=== PATIENT | male | born 1985 | race African-American/Black ===

== ENCOUNTER 2019-12-09 17:55 | Emergency (ER) | payer OTHER ==
[~2019-12-09] VITALS: Ht 162.6 cm; Wt 70.0 kg
[2019-12-09 18:09] VITALS: BP 133/62
[2019-12-09] MEDS ORDERED: ORPH100T PO (18:39)
[2019-12-09] MEDS ORDERED: DICL50TA4 PO (18:39)
[2019-12-09] MEDS ORDERED: TRAM50TA PO (18:39)
--- NOTE | 2019-12-09 18:39 | PHYS DOC ---
Past Medical History Past Medical History: Other Additional Past Medical Histor: thalacemia, "pulmonary disease", benign tachycardia Past Surgical History: No Surgical History Smoking Status: Never Smoker Alcohol Use: None General Adult EDM: Chief Complaint: HEADACHE HPI: HPI: Patient is a 34 year old male who presents with complaint of upper back and neck pain along with headache in the back of his head. Patient states pain is been going on for the last couple of weeks. He denies any fever. He denies any nausea or vomiting. Patient states that pain is worsened when he moves his neck.[] Review of Systems: Review of Systems: Constitutional: Denies fever or chills. [] Eyes: Denies change in visual acuity. [] HENT: Denies nasal congestion or sore throat. [] Respiratory: Denies cough or shortness of breath. [] Cardiovascular: Denies chest pain or edema. [] Musculoskeletal: Complains of neck and upper back pain. [] Integument: Denies rash. [] Neurologic: Complains of headache without focal weakness or sensory changes. [] Heart Score: Risk Factors: Risk Factors: DM, Current or recent (<one month) smoker, HTN, HLP, family history of CAD, obesity. Risk Scores: Score 0 - 3: 2.5% MACE over next 6 weeks - Discharge Home Score 4 - 6: 20.3% MACE over next 6 weeks - Admit for Clinical Observation Score 7 - 10: 72.7% MACE over next 6 weeks - Early Invasive Strategies Allergies: Allergies: Allergies Coded Allergies Type Severity Reaction Last Updated Verified No Known Drug Allergies 12/09/19 No Physical Exam: PE: Constitutional: Well developed, well nourished, no acute distress, non-toxic appearance. [] HENT: Normocephalic, atraumatic, bilateral external ears normal, oropharynx moist, no oral exudates, nose normal. [] Eyes: PERRLA, EOMI, conjunctiva normal, no discharge. [] Neck: Normal range of motion, with suboccipital tenderness, left greater than right, supple. [] Cardiovascular: Regular rate and rhythm[] Lungs & Thorax: Bilateral breath sounds clear to auscultation [] Back: There is tenderness to palpation with palpable spasm noted in the right side and levator scapula and trapezius musculature. [] Neurologic: Alert and oriented X 3, no focal deficits noted. [] Current Patient Data: Vital Signs: Vital Signs Date Time Temp Pulse Resp B/P (MAP) Pulse Ox O2 Delivery O2 Flow Rate FiO2 12/09/19 18:09 98.9 96 18 133/62 (85) 94 Room Air 98.9 EKG: EKG: [] Radiology/Procedures: Radiology/Procedures: [] Course & Med Decision Making: Course & Med Decision Making Pertinent Labs and Imaging studies reviewed. (See chart for details) [] Dragon Disclaimer: Dragon Disclaimer: This electronic medical record was generated, in whole or in part, using a voice recognition dictation system. Departure Departure Impression: Primary Impression: Tension headache Additional Impressions: Upper back pain Neck pain Disposition: HOME, SELF-CARE Condition: STABLE Referrals: ERIN ESCOBAR MD (PCP) Patient Instructions: Back Pain, Adult, Musculoskeletal Pain, Tension Headache Scripts Tramadol Hcl (TRAMADOL HCL) 50 Mg Tablet 50 MG PO Q6HRS PRN for PAIN, #12 TAB Prov: YU LEI Jr. DO 12/09/19 Orphenadrine Citrate (ORPHENADRINE CITRATE) 100 Mg Tablet.er 1 TAB PO BID PRN for MUSCLE SPASMS, #14 TAB Prov: YU LEI Jr. DO 12/09/19 Diclofenac Sodium (DICLOFENAC SODIUM) 50 Mg Tablet.dr 1 TAB PO BID PRN for PAIN, #20 TAB Prov: YU LEI Jr. DO 12/09/19 YU LIE Jr. DO Dec 09, 2019 18:39
== END 2019-12-09 18:52 | disposition home or self-care (01) ==
LOC: ER 17:55
DX: G44.209 Tension-type headache, unspecified, not intractable (principal); M54.6 Pain in thoracic spine; M54.2 Cervicalgia; J98.4 Other disorders of lung
CPT/HCPCS: 99283

== ENCOUNTER 2019-12-29 19:24 | Emergency (ER) | payer OTHER ==
[~2019-12-29] VITALS: Ht 152.4 cm; Wt 67.7 kg
[~2019-12-29 19:24] MED LIST: DICL50TA4 PO; ORPH100T PO; TRAM50TA PO
[2019-12-29 20:44] LABS: BASO # 0.1 x10^3/uL (0.0-0.2); BASO % 1 % (0-3); EOS # 0.1 x10^3/uL (0.0-0.7); EOS % 1 % (0-3); HEMATOCRIT 41.2 % (39.0-53.0); HEMOGLOBIN 12.9 g/dL (13.0-17.5); LYMPH # 2.3 x10^3/uL (1.0-4.8); LYMPH % 29 % (24-48); MEAN CORPUSCULAR HEMOGLOBIN 21 pg (25-35); MEAN CORPUSCULAR HGB CONC 31 g/dL (31-37); MEAN CORPUSCULAR VOLUME 67 fL (79-100); MONO # 0.7 x10^3/uL (0.0-1.1); MONO % 9 % (0-9); NEUT # 4.9 x10^3/uL (1.8-7.7); NEUT % 61 % (31-73); PLATELET COUNT 309 x10^3/uL (140-400); RED BLOOD COUNT 6.19 x10^6/uL (4.30-5.70); RED CELL DISTRIBUTION WIDTH 14.7 % (11.5-14.5); WHITE BLOOD COUNT 8.1 x10^3/uL (4.0-11.0)
[2019-12-29] MEDS ORDERED: IV NORMAL SALINE 1000ML BAG 1,000 ML IV ONE (20:45)
[2019-12-29 20:52] LABS: CALCIUM 8.4 mg/dL (8.5-10.1); CREATININE 1.1 mg/dL (0.7-1.3); GFR 92.7; POTASSIUM 3.5 mmol/L (3.5-5.1)
[2019-12-29 20:53] LABS: PROTHROMBIN TIME PATIENT 13.5 SEC (11.7-14.0)
[2019-12-29 20:59] LABS: ALBUMIN 3.2 g/dL (3.4-5.0); ALBUMIN/GLOBULIN RATIO 0.9 (1.0-1.7); MAGNESIUM 1.9 mg/dL (1.8-2.4); TOTAL BILIRUBIN 0.8 mg/dL (0.2-1.0); TOTAL PROTEIN 6.9 g/dL (6.4-8.2)
[2019-12-29 21:08] LABS: CREATINE KINASE 66 U/L (39-308)
[2019-12-29 21:10] LABS: HYPOCHROMIA MOD; MICROCYTOSIS MARKED; PLT ESTIMATE ADEQUATE (ADEQUATE); POLYCHROMASIA SLIGHT
--- NOTE | 2019-12-29 21:27 | RAD ---
CT HEAD INDICATION: Weakness COMPARISON: None Available. Exposure: One or more of the following individualized dose reduction techniques were utilized for this examination: 1. Automated exposure control 2. Adjustment of the mA and/or kV according to patient size 3. Use of iterative reconstruction technique TECHNIQUE: 5 mm contiguous axial images were obtained from the skull base to the vertex in both bone and soft tissue algorithm. FINDINGS: No abnormal attenuation within the brain parenchyma. No evidence of acute intracranial hemorrhage. No extra-axial fluid collections. No mass effect or midline shift. Ventricular size is appropriate. Basal cisterns are patent. No fractures identified.Saha-white differentiation is preserved.Globes and orbits are within normal limits. Paranasal sinuses and mastoid air cells are clear. IMPRESSION: No acute intracranial findings. Electronically signed by: Kai Resendez MD (12/29/2019 9:23 PM) [id number]
[2019-12-29 21:31] LABS: BILIRUBIN,URINE SMALL (NEG); CLARITY,URINE CLEAR; NITRITE,URINE NEGATIVE (NEG); PROTEIN,URINE NEGATIVE (NEG-TRACE)
--- NOTE | 2019-12-29 21:32 | RAD ---
EXAM: CHEST 1 VIEW History: Weakness COMPARISON: None available. TECHNIQUE: Single portable radiograph of the chest FINDINGS: The cardiac silhouette is unremarkable. Linear atelectasis or opacity or scarring left upper lobe of the lung. The costophrenic sulci are clear and well demarcated. IMPRESSION: Linear opacity or atelectasis or scarring changes left apical lung. Recommend follow-up examination to document stability or resolution. Electronically signed by: Kai Resendez MD (12/29/2019 9:29 PM) [id number]
[2019-12-29 21:35] LABS: COLOR,URINE DK YELLOW
[2019-12-29 21:36] LABS: BARBITURATES NEG (NEG); BENZODIAZEPINES NEG (NEG); CANNABINOIDS NEG (NEG); COCAINE NEG (NEG); METHADONE NEG (NEG); OPIATES NEG (NEG); PHENCYCLIDINE NEG (NEG)
[2019-12-29 21:37] LABS: AMPHETAMINE/METHAMPHETAMINE NEG (NEG)
[2019-12-29 21:38] LABS: BACTERIA,URINE 0 /HPF (0-FEW); RBC,URINE 0 /HPF (0-2); SQUAMOUS EPITHELIAL CELL,UR OCC /LPF; WBC,URINE OCC /HPF (0-4)
--- NOTE | 2019-12-29 22:52 | PHYS DOC ---
Past Medical History Past Medical History: Other Additional Past Medical Histor: thalacemia, "pulmonary disease", benign tachycardia Past Surgical History: No Surgical History Smoking Status: Never Smoker Alcohol Use: None General Adult EDM: Chief Complaint: WEAKNESS/GENERALIZED HPI: HPI: Patient is a 34 year old [f__sex] who presents with [] Review of Systems: Review of Systems: Constitutional: Denies fever or chills. [] Eyes: Denies change in visual acuity. [] HENT: Denies nasal congestion or sore throat. [] Respiratory: Denies cough or shortness of breath. [] Cardiovascular: Denies chest pain or edema. [] GI: Denies abdominal pain, nausea, vomiting, bloody stools or diarrhea. [] : Denies dysuria. [] Musculoskeletal: Denies back pain or joint pain. [] Integument: Denies rash. [] Neurologic: Denies headache, focal weakness or sensory changes. [] Endocrine: Denies polyuria or polydipsia. [] Lymphatic: Denies swollen glands. [] Psychiatric: Denies depression or anxiety. [] Heart Score: Risk Factors: Risk Factors: DM, Current or recent (<one month) smoker, HTN, HLP, family history of CAD, obesity. Risk Scores: Score 0 - 3: 2.5% MACE over next 6 weeks - Discharge Home Score 4 - 6: 20.3% MACE over next 6 weeks - Admit for Clinical Observation Score 7 - 10: 72.7% MACE over next 6 weeks - Early Invasive Strategies Current Medications: Current Medications Medications (Trade) Dose Ordered Sig/Brandon Start Time Stop Time Status Last Admin Dose Admin Sodium Chloride 1,000 ml @ 1,000 mls/hr 1X ONCE 12/29/19 20:45 12/29/19 21:44 DC 12/29/19 21:30 1,000 MLS/HR Allergies: Allergies: Allergies Coded Allergies Type Severity Reaction Last Updated Verified No Known Drug Allergies 12/09/19 No Physical Exam: PE: Constitutional: Well developed, well nourished, no acute distress, non-toxic appearance. [] HENT: Normocephalic, atraumatic, bilateral external ears normal, oropharynx moist, no oral exudates, nose normal. [] Eyes: PERRLA, EOMI, conjunctiva normal, no discharge. [] Neck: Normal range of motion, no tenderness, supple, no stridor. [] Cardiovascular:Heart rate regular rhythm, no murmur [] Lungs & Thorax: Bilateral breath sounds clear to auscultation [] Abdomen: Bowel sounds normal, soft, no tenderness, no masses, no pulsatile masses. [] Skin: Warm, dry, no erythema, no rash. [] Back: No tenderness, no CVA tenderness. [] Extremities: No tenderness, no cyanosis, no clubbing, ROM intact, no edema. [] Neurologic: Alert and oriented X 3, normal motor function, normal sensory fu nction, no focal deficits noted. [] Psychologic: Affect normal, judgement normal, mood normal. [] Current Patient Data: Labs: Laboratory Tests Test 12/29/19 19:58 12/29/19 21:20 12/29/19 21:37 White Blood Count 8.1 x10^3/uL (4.0-11.0) Red Blood Count 6.19 x10^6/uL (4.30-5.70) H Hemoglobin 12.9 g/dL (13.0-17.5) L Hematocrit 41.2 % (39.0-53.0) Mean Corpuscular Volume 67 fL (79-100) L Mean Corpuscular Hemoglobin 21 pg (25-35) L Mean Corpuscular Hemoglobin Concent 31 g/dL (31-37) Red Cell Distribution Width 14.7 % (11.5-14.5) H Platelet Count 309 x10^3/uL (140-400) Neutrophils (%) (Auto) 61 % (31-73) Lymphocytes (%) (Auto) 29 % (24-48) Monocytes (%) (Auto) 9 % (0-9) Eosinophils (%) (Auto) 1 % (0-3) Basophils (%) (Auto) 1 % (0-3) Neutrophils # (Auto) 4.9 x10^3/uL (1.8-7.7) Lymphocytes # (Auto) 2.3 x10^3/uL (1.0-4.8) Monocytes # (Auto) 0.7 x10^3/uL (0.0-1.1) Eosinophils # (Auto) 0.1 x10^3/uL (0.0-0.7) Basophils # (Auto) 0.1 x10^3/uL (0.0-0.2) Platelet Estimate Adequate (ADEQUATE) Polychromasia Slight Hypochromasia Mod Microcytosis Marked Prothrombin Time 13.5 SEC (11.7-14.0) Prothrombin Time INR 1.1 (0.8-1.1) Activated Partial Thromboplast Time 34 SEC (24-38) Sodium Level 141 mmol/L (136-145) Potassium Level 3.5 mmol/L (3.5-5.1) Chloride Level 105 mmol/L (98-107) Carbon Dioxide Level 28 mmol/L (21-32) Anion Gap 8 (6-14) Blood Urea Nitrogen 14 mg/dL (8-26) Creatinine 1.1 mg/dL (0.7-1.3) Estimated GFR (Cockcroft-Gault) 92.7 BUN/Creatinine Ratio 13 (6-20) Glucose Level 94 mg/dL (70-99) Calcium Level 8.4 mg/dL (8.5-10.1) L Magnesium Level 1.9 mg/dL (1.8-2.4) Total Bilirubin 0.8 mg/dL (0.2-1.0) Aspartate Amino Transferase (AST) 11 U/L (15-37) L Alanine Aminotransferase (ALT) 25 U/L (16-63) Alkaline Phosphatase 73 U/L (46-116) Creatine Kinase 66 U/L (39-308) Creatine Kinase MB (Mass) < 0.5 ng/mL (0.0-3.6) Creatine Kinase MB Relative Index % (0-4) Troponin I Quantitative < 0.017 ng/mL (0.000-0.055) Total Protein 6.9 g/dL (6.4-8.2) Albumin 3.2 g/dL (3.4-5.0) L Albumin/Globulin Ratio 0.9 (1.0-1.7) L Ethyl Alcohol Level < 10 mg/dL (0-10) Urine Collection Type Unknown Urine Color Dk yellow Urine Clarity Clear Urine pH 6.0 (<5.0-8.0) Urine Specific [place] >=1.030 (1.000-1.030) Urine Protein Negative mg/dL (NEG-TRACE) Urine Glucose (UA) Negative mg/dL (NEG) Urine Ketones (Stick) Trace mg/dL (NEG) Urine Blood Negative (NEG) Urine Nitrite Negative (NEG) Urine Bilirubin Small (NEG) Urine Urobilinogen Dipstick 1.0 mg/dL (0.2 mg/dL) Urine Leukocyte Esterase Negative (NEG) Urine RBC 0 /HPF (0-2) Urine WBC Occ /HPF (0-4) Urine Squamous Epithelial Cells Occ /LPF Urine Bacteria 0 /HPF (0-FEW) Urine Mucus Marked /LPF Urine Opiates Screen Neg (NEG) Urine Methadone Screen Neg (NEG) Urine Barbiturates Neg (NEG) Urine Phencyclidine Screen Neg (NEG) Urine Amphetamine/Methamphetamine Neg (NEG) Urine Benzodiazepines Screen Neg (NEG) Urine Cocaine Screen Neg (NEG) Urine Cannabinoids Screen Neg (NEG) Urine Ethyl Alcohol Neg (NEG) Lactic Acid Level 0.6 mmol/L (0.4-2.0) Laboratory Tests 12/29/19 19:58 Laboratory Tests 12/29/19 19:58 Vital Signs: Vital Signs Date Time Temp Pulse Resp B/P (MAP) Pulse Ox O2 Delivery O2 Flow Rate FiO2 12/29/19 19:48 98.4 87 14 133/62 (85) 96 Room Air 98.4 EKG: EKG: @2057 NSR at 79bpm, QRS 80ms, QT/QTc 346/398ms Radiology/Procedures: Radiology/Procedures: [] Course & Med Decision Making: Course & Med Decision Making Pertinent Labs and Imaging studies reviewed. (See chart for details) [] Dragon Disclaimer: Dragon Disclaimer: This electronic medical record was generated, in whole or in part, using a voice recognition dictation system. Departure Departure Impression: Primary Impression: Weakness Disposition: 01 HOME, SELF-CARE Condition: STABLE Referrals: FELICITY CHERRY MD (PCP) Patient Instructions: Weakness, [id number] Additional Instructions: Please follow up with your neurologist tomorrow as previously scheduled. ANTOINE NG DO December 29, 2019 22:52
[2019-12-29 23:00] VITALS: BP 124/72
--- NOTE | 2019-12-30 06:52 | EKG ---
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
== END 2019-12-29 23:06 | disposition home or self-care (01) ==
LOC: ER 19:24
DX: R53.1 Weakness (principal)
CPT/HCPCS: 36415; 70450; 71045; 80053; 80307; 81001; 82553; 83605; 83735; 84484; 85025; 85610; 85730; 93005; 99285; G0480; J7030

== ENCOUNTER 2020-01-14 18:46 | Emergency (ER) | payer OTHER ==
[~2020-01-14] VITALS: Ht 152.4 cm; Wt 67.3 kg
[2020-01-14] MEDS ORDERED: IV NORMAL SALINE 1000ML BAG 1,000 ML IV SCH (19:06)
[2020-01-14 19:21] LABS: BASO # 0.1 x10^3/uL (0.0-0.2); BASO % 1 % (0-3); EOS # 0.3 x10^3/uL (0.0-0.7); EOS % 4 % (0-3); HEMATOCRIT 38.9 % (39.0-53.0); HEMOGLOBIN 12.6 g/dL (13.0-17.5); LYMPH # 1.3 x10^3/uL (1.0-4.8); LYMPH % 20 % (24-48); MEAN CORPUSCULAR HEMOGLOBIN 22 pg (25-35); MEAN CORPUSCULAR HGB CONC 32 g/dL (31-37); MEAN CORPUSCULAR VOLUME 67 fL (79-100); MONO # 0.6 x10^3/uL (0.0-1.1); MONO % 9 % (0-9); NEUT # 4.5 x10^3/uL (1.8-7.7); NEUT % 66 % (31-73); PLATELET COUNT 271 x10^3/uL (140-400); RED BLOOD COUNT 5.84 x10^6/uL (4.30-5.70); RED CELL DISTRIBUTION WIDTH 14.5 % (11.5-14.5); WHITE BLOOD COUNT 6.7 x10^3/uL (4.0-11.0)
[2020-01-14 19:30] LABS: CALCIUM 8.7 mg/dL (8.5-10.1); CREATININE 1.1 mg/dL (0.7-1.3); GFR 92.7; POTASSIUM 3.9 mmol/L (3.5-5.1)
--- NOTE | 2020-01-14 19:35 | PHYS DOC ---
Past Medical History Past Medical History: Other Additional Past Medical Histor: thalacemia, "pulmonary disease", benign tachycardia Past Surgical History: No Surgical History Smoking Status: Never Smoker Alcohol Use: None Drug Use: None General Adult EDM: Chief Complaint: WEAKNESS/GENERALIZED HPI: HPI: Patient is a 34 year old male who presents with complaint of generalized weakness for the last couple of days. Patient states that he is also had some shortness of breath but states that that is due to his sarcoidosis. He denies any chest pain or cough. He denies any fever. Patient states he is not sure why he feels weak. Patient also complains of lower back pain but denies any urinary discomfort. [] Review of Systems: Review of Systems: Constitutional: Denies fever or chills. [] Respiratory: Denies cough or shortness of breath. [] Cardiovascular: Denies chest pain or edema. [] GI: Denies abdominal pain, nausea, vomiting, bloody stools or diarrhea. [] : Denies dysuria. [] Musculoskeletal: Complains of lower back pain. [] Integument: Denies rash. [] Neurologic: Denies headache, focal weakness or sensory changes. [] Heart Score: Risk Factors: Risk Factors: DM, Current or recent (<one month) smoker, HTN, HLP, family history of CAD, obesity. Risk Scores: Score 0 - 3: 2.5% MACE over next 6 weeks - Discharge Home Score 4 - 6: 20.3% MACE over next 6 weeks - Admit for Clinical Observation Score 7 - 10: 72.7% MACE over next 6 weeks - Early Invasive Strategies Current Medications: Current Medications Medications (Trade) Dose Ordered Sig/Brandon Start Time Stop Time Status Last Admin Dose Admin Sodium Chloride 1,000 ml @ 1,000 mls/hr Q1H 01/14/20 19:06 01/14/20 20:05 01/14/20 19:15 1,000 MLS/HR Allergies: Allergies: Allergies Coded Allergies Type Severity Reaction Last Updated Verified No Known Drug Allergies 12/09/19 No Physical Exam: PE: Constitutional: Well developed, well nourished, no acute distress, non-toxic appearance. [] HENT: Normocephalic, atraumatic, bilateral external ears normal, oropharynx moist, no oral exudates, nose normal. [] Eyes: PERRLA, EOMI, conjunctiva normal, no discharge. [] Neck: Normal range of motion, no tenderness, supple, no stridor. [] Cardiovascular: Regular rate and rhythm [] Lungs & Thorax: Bilateral breath sounds clear to auscultation [] Abdomen: Bowel sounds normal, soft, no tenderness. [] Skin: Warm, dry, no erythema, no rash. [] Extremities: No tenderness, no cyanosis, no clubbing, ROM intact, no edema. [] Neurologic: Alert and oriented X 3, no focal deficits noted. [] Current Patient Data: Labs: Laboratory Tests Test 01/14/20 19:13 White Blood Count 6.7 x10^3/uL (4.0-11.0) Red Blood Count 5.84 x10^6/uL (4.30-5.70) H Hemoglobin 12.6 g/dL (13.0-17.5) L Hematocrit 38.9 % (39.0-53.0) L Mean Corpuscular Volume 67 fL (79-100) L Mean Corpuscular Hemoglobin 22 pg (25-35) L Mean Corpuscular Hemoglobin Concent 32 g/dL (31-37) Red Cell Distribution Width 14.5 % (11.5-14.5) Platelet Count 271 x10^3/uL (140-400) Neutrophils (%) (Auto) 66 % (31-73) Lymphocytes (%) (Auto) 20 % (24-48) L Monocytes (%) (Auto) 9 % (0-9) Eosinophils (%) (Auto) 4 % (0-3) H Basophils (%) (Auto) 1 % (0-3) Neutrophils # (Auto) 4.5 x10^3/uL (1.8-7.7) Lymphocytes # (Auto) 1.3 x10^3/uL (1.0-4.8) Monocytes # (Auto) 0.6 x10^3/uL (0.0-1.1) Eosinophils # (Auto) 0.3 x10^3/uL (0.0-0.7) Basophils # (Auto) 0.1 x10^3/uL (0.0-0.2) Platelet Estimate Pending Laboratory Tests 01/14/20 19:13 Vital Signs: Vital Signs Date Time Temp Pulse Resp B/P (MAP) Pulse Ox O2 Delivery O2 Flow Rate FiO2 01/14/20 19:00 98.2 92 20 140/72 (94) 99 Room Air 98.2 EKG: EKG: [] Radiology/Procedures: Radiology/Procedures: [] Course & Med Decision Making: Course & Med Decision Making Pertinent Labs and Imaging studies reviewed. (See chart for details) [] Dragon Disclaimer: Dragon Disclaimer: This electronic medical record was generated, in whole or in part, using a voice recognition dictation system. Departure Departure Impression: Primary Impression: Generalized weakness Disposition: 01 HOME, SELF-CARE Condition: STABLE Referrals: FELICITY CHERRY MD (PCP) Patient Instructions: Weakness YU LEI Jr. DO Jan 14, 2020 19:35
[2020-01-14 19:36] LABS: ALBUMIN 3.4 g/dL (3.4-5.0); ALBUMIN/GLOBULIN RATIO 0.9 (1.0-1.7); MAGNESIUM 1.8 mg/dL (1.8-2.4); TOTAL BILIRUBIN 0.7 mg/dL (0.2-1.0)
[2020-01-14 19:42] LABS: BILIRUBIN,URINE NEGATIVE (NEG); CLARITY,URINE CLEAR; COLOR,URINE YELLOW; NITRITE,URINE NEGATIVE (NEG); PROTEIN,URINE NEGATIVE (NEG-TRACE)
[2020-01-14 19:43] LABS: PLT ESTIMATE ADEQUATE (ADEQUATE)
[2020-01-14 19:44] LABS: HYPOCHROMIA MOD; MICROCYTOSIS MOD
[2020-01-14 19:45] LABS: OVALOCYTES OCC
[2020-01-14 19:55] LABS: BACTERIA,URINE 0 /HPF (0-FEW); SQUAMOUS EPITHELIAL CELL,UR OCC /LPF
[2020-01-14 19:56] LABS: WBC,URINE RARE /HPF (0-4)
[2020-01-14 20:30] VITALS: BP 114/65
--- NOTE | 2020-01-15 06:57 | EKG ---
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
== END 2020-01-14 20:39 | disposition home or self-care (01) ==
LOC: ER 18:46
DX: R53.1 Weakness (principal); R06.02 Shortness of breath; M54.5 Low back pain
CPT/HCPCS: 36415; 80053; 81001; 83735; 85025; 93005; 99284; J7030

== ENCOUNTER 2020-03-27 17:51 | Emergency (ER) | payer OTHER ==
[2020-03-28] MEDS ORDERED: BUTA1TAB23 PO (14:05)
== END 2020-03-27 19:33 | disposition left against medical advice (07) ==
LOC: ER 17:51
DX: R51 Headache (principal); M54.2 Cervicalgia; Z53.21 Procedure and treatment not carried out due to patient leaving prior to being seen by health care provider

== ENCOUNTER 2020-03-28 11:33 | Emergency (ER) | payer OTHER ==
[~2020-03-28] VITALS: Ht 152.4 cm; Wt 70.5 kg
[2020-03-28] MEDS ORDERED: diphenhydrAMINE 50 MG/ML VIAL IVP ONE (12:15)
[2020-03-28] MEDS ORDERED: methylPREDNISolone SOD SUCC PF 125 MG/2 ML VIAL. IV ONE (12:15)
[2020-03-28] MEDS ORDERED: IV NORMAL SALINE 1000ML BAG 1,000 ML IV ONE (12:15)
[2020-03-28] MEDS ORDERED: KETOROLAC 15 MG/ML VIAL. IVP ONE (12:15)
[2020-03-28 12:25] LABS: BASO # 0.1 x10^3/uL (0.0-0.2); BASO % 1 % (0-3); EOS # 0.1 x10^3/uL (0.0-0.7); EOS % 2 % (0-3); HEMATOCRIT 38.6 % (39.0-53.0); HEMOGLOBIN 12.3 g/dL (13.0-17.5); LYMPH # 1.6 x10^3/uL (1.0-4.8); LYMPH % 26 % (24-48); MEAN CORPUSCULAR HEMOGLOBIN 21 pg (25-35); MEAN CORPUSCULAR HGB CONC 32 g/dL (31-37); MEAN CORPUSCULAR VOLUME 66 fL (79-100); MONO # 0.5 x10^3/uL (0.0-1.1); MONO % 8 % (0-9); NEUT # 3.9 x10^3/uL (1.8-7.7); NEUT % 63 % (31-73); PLATELET COUNT 278 x10^3/uL (140-400); RED BLOOD COUNT 5.88 x10^6/uL (4.30-5.70); RED CELL DISTRIBUTION WIDTH 14.4 % (11.5-14.5); WHITE BLOOD COUNT 6.1 x10^3/uL (4.0-11.0)
--- NOTE | 2020-03-28 12:30 | PHYS DOC ---
Past Medical History Past Medical History: Other Additional Past Medical Histor: thalacemia, "pulmonary disease", benign tachycardia Past Surgical History: Other Additional Past Surgical Histo: ORAL SURGERY Smoking Status: Never Smoker Alcohol Use: None Drug Use: None General Adult EDM: Chief Complaint: HEADACHE HPI: HPI: Patient is a 35 year old AA male who presents to the emergency department with complaints of a headache in the right side of his head that radiates around to the back of his skull. Patient states that the headache started 3 weeks ago and had been intermittent until this past week when they became constant. He denies any vision changes, photosensitivity, dizziness, ear ringing, nausea, or vomiting with the headaches. He reports that he has had some shortness of breath but states that that is due to his chronic sarcoidosis. He denies any fever, cough, nasal congestion, chest pain, palpitations, abdominal pain, nausea, vomiting, diarrhea, or rash. Patient denies any known exposure to COVID-19 or exposure to any one under investigation for the infection, however, he reports that his works at [employer]. He reports that his joints have been achy for the last 3 weeks and his right foot has been swelling intermittently. He currently rates his headache 8 out of 10 on the pain scale, he denies any alleviating or exacerbating factors, he reports that the pain radiates to the back of his head. Review of Systems: Review of Systems: Constitutional: Denies fever or chills. [] Eyes: Denies change in visual acuity. [] HENT: Denies nasal congestion or sore throat. [] Respiratory: Denies cough; see HPI Cardiovascular: Denies chest pain or palpitations; see HPI GI: Denies abdominal pain, nausea, vomiting, or diarrhea. [] Musculoskeletal: Denies back pain; see HPI Integument: Denies rash. [] Neurologic: Denies focal weakness or sensory changes; see HPI Lymphatic: Denies swollen glands. [] Psychiatric: Denies depression or anxiety. [] Heart Score: Risk Factors: Risk Factors: DM, Current or recent (<one month) smoker, HTN, HLP, family history of CAD, obesity. Risk Scores: Score 0 - 3: 2.5% MACE over next 6 weeks - Discharge Home Score 4 - 6: 20.3% MACE over next 6 weeks - Admit for Clinical Observation Score 7 - 10: 72.7% MACE over next 6 weeks - Early Invasive Strategies Current Medications: Current Medications Medications (Trade) Dose Ordered Sig/Brandon Start Time Stop Time Status Last Admin Dose Admin Diphenhydramine HCl (Benadryl) 25 mg 1X ONCE 03/28/20 12:15 03/28/20 12:16 DC Ketorolac Tromethamine (Toradol 15mg Vial) 15 mg 1X ONCE 03/28/20 12:15 03/28/20 12:16 DC Methylprednisolone Sodium Succinate (SOLU-Medrol 125MG VIAL) 125 mg 1X ONCE 03/28/20 12:15 03/28/20 12:16 DC Sodium Chloride 1,000 ml @ 1,000 mls/hr 1X ONCE 03/28/20 12:15 03/28/20 13:14 Allergies: Allergies: Allergies Coded Allergies Type Severity Reaction Last Updated Verified No Known Drug Allergies 12/09/19 No Physical Exam: PE: Constitutional: Well developed, well nourished, no acute distress, non-toxic appearance. [] HENT: Normocephalic, atraumatic, bilateral external ears normal, oropharynx moist, no oral exudates, nose normal. [] Eyes: PERRLA, EOMI, conjunctiva normal, no discharge. [] Neck: Normal range of motion, no stridor. [] Cardiovascular:Heart rate regular rhythm, no murmur [] Lungs & Thorax: Bilateral breath sounds clear to auscultation, Respirations even and unlabored, no retractions, no respiratory distress [] Skin: Warm, dry, no erythema, no rash. [] Back: No tenderness Extremities: No tenderness, no erythema, no cyanosis, no clubbing, ROM intact, no edema. [] Neurologic: Alert and oriented X 3, normal motor function, normal sensory function, no focal deficits noted. [] Psychologic: Affect normal, judgement normal, mood normal. [] Current Patient Data: Vital Signs: Vital Signs Date Time Temp Pulse Resp B/P (MAP) Pulse Ox O2 Delivery O2 Flow Rate FiO2 03/28/20 11:40 98.8 90 18 125/64 (84) 98 Room Air 98.8 EKG: EKG: [] Radiology/Procedures: Radiology/Procedures: PROCEDURE: CHEST AP ONLY Chest AP only at 1344: Reason for examination: Nausea, vomiting and diarrhea. Comparison is made to previous study dated 12/29/2019. The heart size is normal. Mediastinum is unremarkable. Lung beck show chronic changes in the left apex which probably reflect scarring. There are however mild patchy infiltrates bilaterally which may reflect pneumonia. No pleural effusions are seen. No acute bony abnormalities are seen. Impression: Chronic changes in the left apex probably reflecting scarring. Mild hazy infiltrates bilaterally. PROCEDURE: CT HEAD WO CONTRAST Examination: CT HEAD WO CONTRAST History: Reason: headache x3 weeks, no hx of migraines, PUI / Spl. Instructions: / History: Comparison/Correlation: None Findings: Axial images of the head were obtained without contrast. Ventricles are normal size. No intracranial hemorrhage, midline shift, or mass effect. Bony structures are unremarkable Impression: No suspicious process. [] Course & Med Decision Making: Course & Med Decision Making Pertinent Labs and Imaging studies reviewed. (See chart for details) 35-year-old male presented to the emergency department today with multiple complaints. Work-up included CT head, chest x-ray, labs, IV fluids, and medications for headache. CT head was negative for any acute findings. Chest x-ray revealed chronic changes in the left apex probably scarring, and mild hazy infiltrates bilaterally. CBC revealed a normal white blood cell count, mild anemia with a hemoglobin of 12.3, hematocrit of 38.6, red blood cell count was 5.88; d-dimer was 0.43; CMP revealed a glucose of 113, normal liver enzymes, elevated CRP of 4.2 otherwise unremarkable; patient's UA was not concerning. He was given 1 L of normal saline, 125 mg of Solu-Medrol, 50 mg of Toradol, and 25 mg of IV Benadryl. Patient reported feeling better after these medications. Prescription written for butalbital to take as needed headaches. Patient was advised the COVID-19 test results was not available yet would be back between 2 and 7 days, he was encouraged to follow the COVID-19 instructions provided to him to go home and quarantine until he knows his test result. Patient verbalized an understanding of home care, medications, follow-up, and return to ED instructions and was in agreement with the plan of care. [] Dragon Disclaimer: Dragon Disclaimer: This electronic medical record was generated, in whole or in part, using a voice recognition dictation system. Departure Departure Impression: Primary Impression: Person under investigation for COVID-19 Additional Impression: Headache Qualified Codes: R51 - Headache Disposition: 01 HOME, SELF-CARE Condition: STABLE Referrals: FELICITY CHERRY MD (PCP) Patient Instructions: General Headache Without Cause, [id number] Additional Instructions: Fill the prescription and take as directed. Increase clear fluids and rest. Follow-up with the COVID-19 instructions that have been given to you. You need to quarantine until you know the results of your COVID-19 test. You have been tested for or diagnosed with COVID-19. It is an infection caused by a new type of coronavirus. COVID-19 will cause cold-like or mild flu symptoms in most. It can cause more severe symptoms like problems breathing in some. There is no treatment for COVID-19. The body will clear the infection over time. Self-care will help to ease discomfort. Steps to Take: Self-Care Rest as needed. Healthy habits may help you feel better. Steps include: Choose healthy foods including fruits and vegetables. Drink water throughout the day. Get plenty of sleep each night. If you smoke, try to quit. It may ease breathing. Avoid alcohol. Keep Others Healthy The virus can spread to others. Droplets are released every time you sneeze or cough. The droplets can get into the mouth, nose, or eyes of people near you and lead to infection. To lower the chances of spreading COVID-19 to others: Stay at home until your doctor has said it is safe to leave. If you tested positive this will mean staying isolated until both of the following are true: At least 7 days have passed since the start of illness. You are free of fever for at least 72 hours without the use of medicine. During this time: - Avoid public areas, events, or transportation. Do not return to work or school until your doctor has said it is safe to do so. - Call ahead if you need to go to a medical center. Let them know you may have COVID-19. It will help them guide you where to go. They may also ask you to wear a facemask when you come to the office. - If you call for emergency medical services, let them know you may have COVID- 19. While at home: - Try to avoid close contact with others. Stay about 6 feet away. - If possible, spend most of your time in a separate room from others. - Use a face mask if you will be in close contact with others such as sharing a room or vehicle. - Have someone wipe down common surfaces in the home. Use household horticultural services supervisor every day on areas like doorknobs, counters, or sinks. - Cough or sneeze into a tissue. Throw the tissue away right after use. If a tissue is not available, cough or sneeze into your elbow. - Wash your hands often. Wash them after sneezing or coughing. Use soap and water and wash for at least 20 seconds. Alcohol based hand belt cleaner can be used if soap and water is not available. - Do not prepare food for others. Avoid sharing personal items like forks, spoons, or toothbrushes. - Avoid close contact with pets while you are sick. There is no evidence of the virus passing to pets. This is a safety step until more is known about this virus. Isolation can be frustrating. Social interaction can help. Keep in touch with friends and family through phone and tech options. You can still interact with others in your home, just keep a safe distance of about 6 feet. Follow-up: Your doctors office will check in with you to see if there are any changes in your health. You may be asked to keep track of symptoms to share with them. They will also let you know when you are clear to be in public again. Problems to Look Out For: Contact your doctor if your recovery is not going as you expect. Get emergency care if you have problems such as: - Trouble breathing - Nonstop chest pain or pressure - Changes in awareness, confusion, or problems waking - Lips or face have bluish color - Worsening of symptoms If you think you have an emergency, call for emergency medical services right away. [facility] Butalb/Acetaminophen/Caffeine ([id number] 50-325-40) 1 Each Tablet 1-2 EACH PO Q4HRS PRN for PAIN MDD 6 tabs for 3 Days, #18 TAB 0 Refills Prov: MARI MIDDLETON Jerome INSURANCE SALES REPRESENTATIVE 03/28/20 Justicifation of Admission Dx: Justifications for Admission: Justification of Admission Dx: N/A COVID-19 Assessment: COVID-19 Patient Risks: Age 65 or older: No Sign of co-morbidity: No Exp to person + for COVID: No Exp to PUI: No ( works at [employer]) Travel from affected area: No Lower respiratory symptoms: No Fever: No Other: Yes (Body aches and headache that began 3 weeks ago, increased shortness of breath) PPE Use: Full PPE with N95 mask or PAPR: Yes (N 95) MARI MIDDLETON APRN Mar 28, 2020 12:30
--- NOTE | 2020-03-28 12:51 | RAD ---
Examination: CT HEAD WO CONTRAST History: Reason: headache x3 weeks, no hx of migraines, PUI / Spl. Instructions: / History: Comparison/Correlation: None Findings: Axial images of the head were obtained without contrast. Ventricles are normal size. No intracranial hemorrhage, midline shift, or mass effect. Bony structures are unremarkable Impression: No suspicious process. Electronically signed by: Eder Alva MD (03/28/2020 12:48 PM) [id number]
[2020-03-28 12:53] LABS: CALCIUM 8.2 mg/dL (8.5-10.1); CREATININE 1.2 mg/dL (0.7-1.3); GFR 83.4; POTASSIUM 3.5 mmol/L (3.5-5.1)
[2020-03-28 13:03] LABS: BILIRUBIN,URINE NEGATIVE (NEG); CLARITY,URINE CLEAR; COLOR,URINE YELLOW; NITRITE,URINE NEGATIVE (NEG); PROTEIN,URINE NEGATIVE (NEG-TRACE)
[2020-03-28 13:10] LABS: ALBUMIN 3.3 g/dL (3.4-5.0); ALBUMIN/GLOBULIN RATIO 0.8 (1.0-1.7); C-REACTIVE PROTEIN 4.2 mg/L (0-3.3); TOTAL BILIRUBIN 0.9 mg/dL (0.2-1.0); TOTAL PROTEIN 7.2 g/dL (6.4-8.2)
[2020-03-28 13:20] LABS: SQUAMOUS EPITHELIAL CELL,UR FEW /LPF
[2020-03-28 13:21] LABS: BACTERIA,URINE 0 /HPF (0-FEW); RBC,URINE 0 /HPF (0-2)
--- NOTE | 2020-03-28 13:38 | RAD ---
Chest AP only at 1344: Reason for examination: Nausea, vomiting and diarrhea. Comparison is made to previous study dated 12/29/2019. The heart size is normal. Mediastinum is unremarkable. Lung beck show chronic changes in the left apex which probably reflect scarring. There are however mild patchy infiltrates bilaterally which may reflect pneumonia. No pleural effusions are seen. No acute bony abnormalities are seen. Impression: Chronic changes in the left apex probably reflecting scarring. Mild hazy infiltrates bilaterally. Electronically signed by: Roseanna Cespedes MD (03/28/2020 1:35 PM) [facility]
[2020-03-28 13:48] LABS: PLT ESTIMATE ADEQUATE (ADEQUATE)
[2020-03-28 13:49] LABS: HYPOCHROMIA SLIGHT; MICROCYTOSIS MOD
[2020-03-28] MEDS ORDERED: BUTA1TAB23 PO (14:05)
[2020-03-28 14:24] VITALS: BP 119/57
--- NOTE | 2020-03-30 10:29 | NUR ---
IP: Informed pt of negative COVID results. Pt verbalized understanding.
== END 2020-03-28 14:43 | disposition home or self-care (01) ==
LOC: ER 11:33
DX: R51 Headache (principal); Z20.818 Contact with and (suspected) exposure to other bacterial communicable diseases; R60.0 Localized edema; Z98.890 Other specified postprocedural states
CPT/HCPCS: 36415; 70450; 71045; 80053; 81001; 82550; 82728; 83690; 83735; 85025; 85379; 86140; 96361; 96374; 96375; 99285; J1200; J1885; J2930; J7030; U0003

== ENCOUNTER 2020-11-02 20:43 | Emergency (ER) | payer OTHER ==
[~2020-11-02] VITALS: Ht 175.3 cm; Wt 79.5 kg
[~2020-11-02 20:43] MED LIST changes: +BUTA1TAB23 PO
[2020-11-02] MEDS ORDERED: methylPREDNISolone SOD SUCC PF 125 MG/2 ML VIAL. IV ONE (22:15)
[2020-11-02] MEDS ORDERED: MORPHINE SULFATE 2 MG/ML VIAL. IV/SQ PRN (22:15)
[2020-11-02] MEDS ORDERED: IV NORMAL SALINE 1000ML BAG 1,000 ML IV ONE (22:15)
[2020-11-02 22:40] LABS: BASO % 0 % (0-3); EOS % 0 % (0-3); HEMATOCRIT 39.6 % (39.0-53.0); HEMOGLOBIN 12.5 g/dL (13.0-17.5); LYMPH # 0.8 x10^3/uL (1.0-4.8); LYMPH % 9 % (24-48); MEAN CORPUSCULAR HEMOGLOBIN 21 pg (25-35); MEAN CORPUSCULAR HGB CONC 32 g/dL (31-37); MEAN CORPUSCULAR VOLUME 65 fL (79-100); MONO # 0.3 x10^3/uL (0.0-1.1); MONO % 4 % (0-9); NEUT # 7.5 x10^3/uL (1.8-7.7); NEUT % 87 % (31-73); PLATELET COUNT 295 x10^3/uL (140-400); RED BLOOD COUNT 6.06 x10^6/uL (4.30-5.70); RED CELL DISTRIBUTION WIDTH 14.5 % (11.5-14.5); WHITE BLOOD COUNT 8.6 x10^3/uL (4.0-11.0)
--- NOTE | 2020-11-02 22:46 | RAD ---
INDICATION: Reason: weakness, tingling in shoulders / Spl. Instructions: / History: COMPARISON: March 2020 FINDINGS: Single view of chest obtained. Disorganized pulmonary markings bilaterally with perihilar opacities at within the upper lungs bilate rally left greater than right. Cardiac silhouette is unremarkable. No gross osseous destructive lesio n IMPRESSION: * Repeat demonstration of perihilar opacities within the left greater than right upper lung which ap pears slightly increased when compared to prior examinations. A portion this is likely chronic in dae ure from regions of scarring but superimposed infiltrate is possible given this finding Electronically signed by: Terry Monique MD (11/02/2020 10:44 PM) [id number]
[2020-11-02 22:50] LABS: CALCIUM 8.4 mg/dL (8.5-10.1); CREATININE 1.3 mg/dL (0.7-1.3); POTASSIUM 4.5 mmol/L (3.5-5.1)
[2020-11-02 22:56] LABS: ALBUMIN 3.5 g/dL (3.4-5.0); ALBUMIN/GLOBULIN RATIO 0.9 (1.0-1.7); MAGNESIUM 2.1 mg/dL (1.8-2.4); TOTAL BILIRUBIN 0.4 mg/dL (0.2-1.0); TOTAL PROTEIN 7.4 g/dL (6.4-8.2)
[2020-11-02 23:02] LABS: ANISOCYTOSIS MOD; HYPOCHROMIA MOD; MICROCYTOSIS MOD; PLT ESTIMATE ADEQUATE (ADEQUATE)
[2020-11-02 23:15] LABS: BILIRUBIN,URINE NEGATIVE (NEG); CLARITY,URINE CLEAR; COLOR,URINE YELLOW; NITRITE,URINE NEGATIVE (NEG); PROTEIN,URINE NEGATIVE (NEG-TRACE); UROBILINOGEN,URINE 0.2 mg/dL (0.2 mg/dL)
[2020-11-02 23:21] LABS: BARBITURATES NEG (NEG); BENZODIAZEPINES NEG (NEG); CANNABINOIDS NEG (NEG); COCAINE NEG (NEG); METHADONE NEG (NEG); OPIATES POS (NEG); PHENCYCLIDINE NEG (NEG)
[2020-11-02 23:22] LABS: AMPHETAMINE/METHAMPHETAMINE NEG (NEG)
[2020-11-02 23:23] LABS: BACTERIA,URINE 0 /HPF (0-FEW); RBC,URINE 0 /HPF (0-2); WBC,URINE 0 /HPF (0-4)
[2020-11-02 23:24] LABS: AMORPHOUS SEDIMENT,UR PRESENT /HPF
--- NOTE | 2020-11-02 23:39 | RAD ---
CT head without contrast. CT cervical spine without contrast PQRS statement: CT scans at this facility use dose reduction including either automated exposure cont rol, iterative reconstructions, and /or weight based radiation dosing via mA and kV modification when appropriate to reduce radiation dose to as low as reasonably achievable. HISTORY: Head pain. Numbness. Neck pain. CT head findings: Comparison is made to CT head March 28, 2020. No intracranial hemorrhage, mass, hy drocephalus, extra-axial fluid collections or infarction. Orbits, mastoids and bones are unremarkable . IMPRESSION: Normal exam. CT cervical spine findings: Craniocervical junction intact. Cervical vertebral body height and alignm ent intact. No fracture of the cervical spine. There are shallow disc protrusions at C4-C5 and C5-C6, mild canal stenosis at C5-C6 is a possibility. Imaged lung apices and paraspinal tissues are unremar kable. IMPRESSION: No acute osseous injury of the cervical spine. Cervical disc disease as described below. Electronically signed by: Pk Traylor MD (11/02/2020 11:36 PM) [facility]
[2020-11-03] MEDS ORDERED: AMOX1TAB61 PO (00:43)
[2020-11-03] MEDS ORDERED: PRED50TA PO (00:43)
--- NOTE | 2020-11-03 00:45 | PHYS DOC ---
Past Medical History Past Medical History: Other Additional Past Medical Histor: thalacemia, sarcoidosis, benign tachycardia (SONNY MORRIS WORKFORCE MANAGEMENT MANAGER) Past Surgical History: Other Additional Past Surgical Histo: ORAL SURGERY (SONNY MORRIS WORKFORCE MANAGEMENT MANAGER) Smoking Status: Never Smoker Alcohol Use: None Drug Use: None (SONNY MORRIS WORKFORCE MANAGEMENT MANAGER) General Adult EDM: Chief Complaint: WEAKNESS/GENERALIZED HPI: HPI: Patient is a 35 year old male with history of sarcoidosis presenting to the ED today with multiple complaints. Patient is complaining of a burning pain 7 out of 10 burning on his head, down to his neck and shoulders, symptoms began 1 week ago. He is also complaining of generalized weakness to bilateral upper and lower extremities for 4 days. He is also complaining of numbness to the right arm and face that began today unknown time. Denies any fever, coughing or congestion. Denies any chest pain or shortness of breath. Denies anything specifically exacerbating or relieving his symptoms (SONNY MORRIS WORKFORCE MANAGEMENT MANAGER) Review of Systems: Review of Systems: Constitutional: Denies fever or chills. [] Eyes: Denies change in visual acuity. [] HENT: Denies nasal congestion or sore throat. [] Respiratory: Denies cough or shortness of breath. [] Cardiovascular: Denies chest pain or edema. [] GI: Denies abdominal pain, nausea, vomiting, bloody stools or diarrhea. [] : Denies dysuria. [] Musculoskeletal: Reports pain on his neck to his shoulders, denies back pain Integument: Denies rash. [] Neurologic: Reports pain on his head, reports numbness to right upper and right face and weakness to bilateral upper and lower extremities, denies focal weakness Psychiatric: Denies depression or anxiety. [] (SONNY MORRIS WORKFORCE MANAGEMENT MANAGER) Heart Score: C/O Chest Pain: N/A Risk Factors: Risk Factors: DM, Current or recent (<one month) smoker, HTN, HLP, family history of CAD, obesity. Risk Scores: Score 0 - 3: 2.5% MACE over next 6 weeks - Discharge Home Score 4 - 6: 20.3% MACE over next 6 weeks - Admit for Clinical Observation Score 7 - 10: 72.7% MACE over next 6 weeks - Early Invasive Strategies (SONNY MORRIS WORKFORCE MANAGEMENT MANAGER) Current Medications: Current Medications Medications (Trade) Dose Ordered Sig/Brandon Start Time Stop Time Status Last Admin Dose Admin Methylprednisolone Sodium Succinate (SOLU-Medrol 125MG VIAL) 125 mg 1X ONCE 11/02/20 22:15 11/02/20 22:17 DC 11/02/20 22:39 125 MG Morphine Sulfate (Morphine Sulfate) 2 mg PRN Q15MIN PRN 11/02/20 22:15 11/03/20 22:14 11/02/20 22:39 2 MG Sodium Chloride 1,000 ml @ 1,000 mls/hr 1X ONCE 11/02/20 22:15 11/02/20 23:14 DC 11/02/20 22:40 1,000 MLS/HR (SONNY MORRIS Dg WORKFORCE MANAGEMENT MANAGER) Allergies: Allergies: Allergies Coded Allergies Type Severity Reaction Last Updated Verified No Known Drug Allergies 12/09/19 No (SONNY MORRIS Dg WORKFORCE MANAGEMENT MANAGER) Physical Exam: PE: Constitutional: Well developed, well nourished, no acute distress, non-toxic appearance. [] HENT: Normocephalic, atraumatic, bilateral external ears normal, oropharynx moist, no oral exudates, nose normal. [] Eyes: PERRLA, EOMI, conjunctiva normal, no discharge. [] Neck: Normal range of motion, no tenderness, supple, no stridor. [] Cardiovascular:Heart rate regular rhythm, no murmur [] Lungs & Thorax: Bilateral breath sounds clear to auscultation [] Abdomen: Bowel sounds normal, soft, no tenderness, no masses, no pulsatile masses. [] Skin: Warm, dry, no erythema, no rash. [] Back: No tenderness, no CVA tenderness. [] Extremities: No tenderness, no cyanosis, no clubbing, ROM intact, no edema. [] Neurologic: Alert and oriented X 3, normal motor function, normal sensory function, no focal deficits noted. Cranial nerves II through XII intact. Psychologic: Affect normal, judgement normal, mood normal. [] (SONNY MORRIS Dg WORKFORCE MANAGEMENT MANAGER) Current Patient Data: Labs: Laboratory Tests Test 11/02/20 22:25 11/02/20 23:00 White Blood Count 8.6 x10^3/uL (4.0-11.0) Red Blood Count 6.06 x10^6/uL (4.30-5.70) H Hemoglobin 12.5 g/dL (13.0-17.5) L Hematocrit 39.6 % (39.0-53.0) Mean Corpuscular Volume 65 fL (79-100) L Mean Corpuscular Hemoglobin 21 pg (25-35) L Mean Corpuscular Hemoglobin Concent 32 g/dL (31-37) Red Cell Distribution Width 14.5 % (11.5-14.5) Platelet Count 295 x10^3/uL (140-400) Neutrophils (%) (Auto) 87 % (31-73) H Lymphocytes (%) (Auto) 9 % (24-48) L Monocytes (%) (Auto) 4 % (0-9) Eosinophils (%) (Auto) 0 % (0-3) Basophils (%) (Auto) 0 % (0-3) Neutrophils # (Auto) 7.5 x10^3/uL (1.8-7.7) Lymphocytes # (Auto) 0.8 x10^3/uL (1.0-4.8) L Monocytes # (Auto) 0.3 x10^3/uL (0.0-1.1) Eosinophils # (Auto) 0.0 x10^3/uL (0.0-0.7) Basophils # (Auto) 0.0 x10^3/uL (0.0-0.2) Platelet Estimate Adequate (ADEQUATE) Hypochromasia Mod Anisocytosis Mod Microcytosis Mod Sodium Level 139 mmol/L (136-145) Potassium Level 4.5 mmol/L (3.5-5.1) Chloride Level 103 mmol/L (98-107) Carbon Dioxide Level 27 mmol/L (21-32) Anion Gap 9 (6-14) Blood Urea Nitrogen 15 mg/dL (8-26) Creatinine 1.3 mg/dL (0.7-1.3) Estimated GFR (Cockcroft-Gault) 76.0 BUN/Creatinine Ratio 12 (6-20) Glucose Level 131 mg/dL (70-99) H Calcium Level 8.4 mg/dL (8.5-10.1) L Magnesium Level 2.1 mg/dL (1.8-2.4) Total Bilirubin 0.4 mg/dL (0.2-1.0) Aspartate Amino Transferase (AST) 13 U/L (15-37) L Alanine Aminotransferase (ALT) 16 U/L (16-63) Alkaline Phosphatase 79 U/L (46-116) Troponin I Quantitative < 0.017 ng/mL (0.000-0.055) OH-Bjp-J-Type Natriuretic Peptide 11 pg/mL (0-124) Total Protein 7.4 g/dL (6.4-8.2) Albumin 3.5 g/dL (3.4-5.0) Albumin/Globulin Ratio 0.9 (1.0-1.7) L Thyroid Stimulating Hormone (TSH) 0.630 uIU/mL (0.358-3.74) Urine Collection Type Unknown Urine Color Yellow Urine Clarity Clear Urine pH 6.0 (<5.0-8.0) Urine Specific [place] >=1.030 (1.000-1.030) Urine Protein Negative mg/dL (NEG-TRACE) Urine Glucose (UA) Negative mg/dL (NEG) Urine Ketones (Stick) Trace mg/dL (NEG) Urine Blood Negative (NEG) Urine Nitrite Negative (NEG) Urine Bilirubin Negative (NEG) Urine Urobilinogen Dipstick 0.2 mg/dL (0.2 mg/dL) Urine Leukocyte Esterase Negative (NEG) Urine RBC 0 /HPF (0-2) Urine WBC 0 /HPF (0-4) Urine Squamous Epithelial Cells Few /LPF Urine Amorphous Sediment Present /HPF Urine Bacteria 0 /HPF (0-FEW) Urine Mucus Marked /LPF Urine Opiates Screen Pos (NEG) Urine Methadone Screen Neg (NEG) Urine Barbiturates Neg (NEG) Urine Phencyclidine Screen Neg (NEG) Urine Amphetamine/Methamphetamine Neg (NEG) Urine Benzodiazepines Screen Neg (NEG) Urine Cocaine Screen Neg (NEG) Urine Cannabinoids Screen Neg (NEG) Urine Ethyl Alcohol Neg (NEG) Laboratory Tests 11/02/20 22:25 Laboratory Tests 11/02/20 22:25 Vital Signs: Vital Signs Date Time Temp Pulse Resp B/P (MAP) Pulse Ox O2 Delivery O2 Flow Rate FiO2 11/02/20 21:30 98.5 69 18 128/59 (82) 97 Room Air 98.5 (SONNY MORRIS WORKFORCE MANAGEMENT MANAGER) EKG: EK interpreted by Dr. Ng sinus rhythm heart rate 75 no STEMI [] (SONNY MORRIS WORKFORCE MANAGEMENT MANAGER) Radiology/Procedures: Radiology/Procedures: []PROCEDURE: CT HEAD AND CERVICAL SPINE WO CT head without contrast. CT cervical spine without contrast PQRS statement: CT scans at this facility use dose reduction including either automated exposure control, iterative reconstructions, and /or weight based ra diation dosing via mA and kV modification when appropriate to reduce radiation dose to as low as reasonably achievable. HISTORY: Head pain. Numbness. Neck pain. CT head findings: Comparison is made to CT head March 28, 2020. No intracranial hemorrhage, mass, hydrocephalus, extra-axial fluid collections or infarction. Orbits, mastoids and bones are unremarkable. IMPRESSION: Normal exam. CT cervical spine findings: Craniocervical junction intact. Cervical vertebral body height and alignment intact. No fracture of the cervical spine. There are shallow disc protrusions at C4-C5 and C5-C6, mild canal stenosis at C5-C6 is a possibility. Imaged lung apices and paraspinal tissues are unremarkable. IMPRESSION: No acute osseous injury of the cervical spine. Cervical disc disease as described below. Electronically signed by: Tracee Traylor MD (11/02/2020 11:36 PM) [facility] DICTATED and SIGNED BY: TRACEE TRAYLOR MD DATE: 11/02/20 [id number] PROCEDURE: PORTABLE CHEST 1V INDICATION: Reason: weakness, tingling in shoulders / Spl. Instructions: / History: COMPARISON: March 2020 FINDINGS: Single view of chest obtained. Disorganized pulmonary markings bilaterally with perihilar opacities at within the upper lungs bilaterally left greater than right. Cardiac silhouette is unremarkable. No gross osseous destructive lesion IMPRESSION: * Repeat demonstration of perihilar opacities within the left greater than right upper lung which appears slightly increased when compared to prior examinations. A portion this is likely chronic in nature from regions of scarring but superimposed infiltrate is possible given this finding Electronically signed by: Italo Butterfield MD (11/02/2020 10:44 PM) [facility]- [id number] DICTATED and SIGNED BY: ITALO BUTTERFIELD MD DATE: 11/02/20 [id number] (SONNY MORRIS WORKFORCE MANAGEMENT MANAGER) Course & Med Decision Making: Course & Med Decision Making Pertinent Labs and Imaging studies reviewed. (See chart for details) This is a 35-year-old male patient presenting to the ED today with multiple complaints. Patient is complaining of burning pain on his head, neck into shoulders for 1 week. Complaining of weakness to bilateral upper and lower extremities for 4 days, numbness to the right arm and face that began today. FAST exam is negative. NHISS is negative. CT of the head and cervical spine are negative for any acute findings. Chest x- ray noted for possible bilateral pneumonia some of it being chronic CBC with a normal WBC, RBC 6.06, hemoglobin 12.5, hematocrit 39.6, MCV 65, MCH 21. History of microcytic hypochromic anemia. CMP with no acute findings Patient was discharged to home. Follow-up with PCP. Provided return precautions (SONNY MORRIS APRN) Idris Disclaimer: Idris Disclaimer: This electronic medical record was generated, in whole or in part, using a voice recognition dictation system. (SONNY MORRIS APRN) NIHSS Stroke Scale NIH Stroke Scale: NIH Stroke Scale Response (Comments) Value Level of Consciousness: 0 Alert/Responsive 0 LOC Questions: 0 Answers both correctly 0 Best Gaze: 0 Normal 0 Visual: 0 No visual loss 0 Facial Palsy: 0 Normal, symmetrical 0 Motor - Left Arm 0 No drift 0 Motor - Right Arm 0 No drift 0 Motor - Left Leg 0 No drift 0 Motor: Right Leg 0 No drift 0 Limb Ataxia: 0 Absent 0 Sensory: 0 No loss 0 Best Language: 0 Normal 0 Dysathria: 0 Normal 0 Extinction and Inattention: 0 Normal 0 Total 0 Departure Departure Impression: Primary Impression: Generalized weakness Additional Impressions: Pneumonia of both lungs Qualified Codes: J18.9 - Pneumonia, unspecified organism Paresthesia and pain of right extremity Facial paresthesia Microcytic anemia Disposition: 01 DC HOME SELF CARE/HOMELESS Condition: STABLE Referrals: FELICITY CHERRY MD (PCP) follow up next week Patient Instructions: Paresthesia, [id number], Weakness, [id number] Additional Instructions: You were evaluated in the emergency room. Your work-up was negative for any acute findings. Your chest x-ray was noted for possible pneumonia though the radiologist mentioned this could be chronic. We will put you on medicines, take them as prescribed. Follow-up with your doctor in a week Scripts Amoxicillin/Potassium Clav (AUGMENTIN 875-125 TABLET) 1 Each Tablet 1 TAB PO BID for 7 Days, #14 TAB 0 Refills Prov: SONNY MORRIS APRN 11/03/20 Prednisone (PREDNISONE) 50 Mg Tablet 1 TAB PO DAILY, #5 TAB Prov: SONNY MORRIS APRN 11/03/20 Attending Signature Attending Signature I have reviewed the PA/COVER INSPECTOR's note and plan of care. I was available for consultation as needed during the patient's visit in the emergency department. I agree with the clinical impression, plan, and disposition. (ANTOINE NG DO) SONNY MORRIS APRN Nov 03, 2020 00:45 ANTOINE NG DO Nov 03, 2020 05:14
[2020-11-03 01:00] VITALS: BP 116/58
--- NOTE | 2020-11-03 01:44 | EKG ---
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
== END 2020-11-03 01:05 | disposition home or self-care (01) ==
LOC: ER 20:43
DX: J18.9 Pneumonia, unspecified organism (principal); R53.1 Weakness; R20.2 Paresthesia of skin; D50.9 Iron deficiency anemia, unspecified
CPT/HCPCS: 36415; 70450; 71045; 72125; 80053; 80307; 81001; 83735; 83880; 84443; 84484; 85025; 93005; 96361; 96374; 96375; 99285; J2270; J2930; J7030

== ENCOUNTER 2020-12-21 16:59 | Emergency (ER) | payer OTHER ==
[~2020-12-21] VITALS: Ht 152.4 cm; Wt 70.0 kg
[~2020-12-21 16:59] MED LIST changes: +AMOX1TAB61 PO; +PRED50TA PO
--- NOTE | 2020-12-21 19:54 | RAD ---
XR CHEST 2V History: Reason: PAINFUL BREATHING X4 DAYS. HX OF SARCOIDOSIS / Comparison: AP chest November 02, 2020 and March 28, 2020. Findings: The cardiomediastinal silhouette is normal. There are bilateral perihilar interstitial opacities that are stable. No superimposed acute airspace disease is identified. No pleural effusion or pneumothora x is seen. There is no acute bone abnormality. IMPRESSION: There are unchanged bilateral perihilar interstitial opacities. No superimposed acute airspace diseas e is identified. Electronically signed by: Nestor Dick MD (12/21/2020 7:51 PM) [facility]
[2020-12-21] MEDS ORDERED: CYCL10TA2 PO (20:14)
--- NOTE | 2020-12-21 20:15 | ED.ADGEN ---
Past Medical History Past Medical History: Other Additional Past Medical Histor: SARCORDOSIS Past Surgical History: No Surgical History Additional Past Surgical Histo: ORAL SURGERY Smoking Status: Former Smoker Alcohol Use: None Drug Use: None General Adult EDM: Chief Complaint: GENERALIZED BODY ACHES HPI: HPI: Patient is a 35 year old male who presents emergency department with complaints of various body aches, generalized back pain, pain in the right chest with deep breath, and shortness of breath for the last month. Patient states that the pain takes his breath away. He denies any wheezing. He reports he has been taking 40 mg of prednisone that was prescribed by his aviation boatswain's mate since last week. He denies any fever, diaphoresis, nausea, vomiting, palpitations, diarrhea, or lower abdominal pain. Patient states he has upper abdominal pain when he takes a deep breath sometimes. He denies any abdominal tenderness. He currently rates his pain 8 out of 10 on the pain scale, the pain increases when you touch the paraspinal regions of his thoracic back bilaterally, he denies any alleviating factors. Recent heavy lifting, fall, or trauma. Review of Systems: Review of Systems: Complete ROS is negative unless otherwise noted in HPI. Allergies: Allergies: Allergies Coded Allergies Type Severity Reaction Last Updated Verified No Known Drug Allergies 12/09/19 No Physical Exam: PE: See Above Constitutional: Well developed, well nourished, no acute distress, non-toxic appearance. [] HENT: Normocephalic, atraumatic, bilateral external ears normal, nose normal. [] Eyes: PERRLA, EOMI, conjunctiva normal, no discharge. [] Neck: Normal range of motion, no stridor. [] Cardiovascular:Heart rate regular rhythm, no murmur Lungs & Thorax: Respirations even and unlabored, no retractions, no respiratory distress, lung sounds mild rhonchi throughout Abdomen: soft, no tenderness Back: Bilateral thoracic paraspinal tenderness to palpation, no bony tenderness Skin: Warm, dry, no erythema, no rash. [] Extremities: No cyanosis, ROM intact, no edema. [] Neurologic: Alert and oriented X 3, no focal deficits noted. [] Psychologic: Affect normal, judgement normal, mood normal. [] Current Patient Data: Vital Signs: Vital Signs Date Time Temp Pulse Resp B/P (MAP) Pulse Ox O2 Delivery O2 Flow Rate FiO2 5/10/21 20:29 74 20 114/57 (76) 98 Room Air 12/21/20 17:14 97.9 97.9 EKG: EK-sinus rhythm, normal EKG, rate 85, no STEMI, read by Dr. López[] Heart Score: C/O Chest Pain: Yes HEART Score for Chest Pain: HEART Score for Chest Pain Response (Comments) Value History Slighlty/Non-Suspicious 0 ECG Normal 0 Age < 45 0 Risk Factors No Risk Factors 0 Total 0 Risk Factors: Risk Factors: DM, Current or recent (<one month) smoker, HTN, HLP, family history of CAD, obesity. Risk Scores: Score 0 - 3: 2.5% MACE over next 6 weeks - Discharge Home Score 4 - 6: 20.3% MACE over next 6 weeks - Admit for Clinical Observation Score 7 - 10: 72.7% MACE over next 6 weeks - Early Invasive Strategies Radiology/Procedures: Radiology/Procedures: PROCEDURE: CHEST PA & LATERAL XR CHEST 2V History: Reason: PAINFUL BREATHING X4 DAYS. HX OF SARCOIDOSIS / Comparison: AP chest November 02, 2020 and March 28, 2020. Findings: The cardiomediastinal silhouette is normal. There are bilateral perihilar interstitial opacities that are stable. No superimposed acute airspace disease is identified. No pleural effusion or pneumothorax is seen. There is no acute bone abnormality. IMPRESSION: There are unchanged bilateral perihilar interstitial opacities. No superimposed acute airspace disease is identified. Electronically signed by: Nestor Dick MD (12/21/2020 7:51 PM) [facility] [] Course & Med Decision Making: Course & Med Decision Making Pertinent Labs and Imaging studies reviewed. (See chart for details) Patient 35-year-old male who presents emergency department with complaints of body aches, right-sided chest pain is worse with inspiration, and generalized back pain. Chest x-ray was unchanged from his previous chest x-ray on November 02, 2020. Patient's vital signs are stable. Patient's back is tender to palpation over the thoracic paraspinal regions. I offered to prescribe the patient some naproxen he refused naproxen prescription. I encouraged him to continue taking the prednisone as prescribed by his aviation boatswain's mate. Will prescribe Flexeril. Recommend follow-up with primary care doctor in the next 1 to 2 days for reevaluation, return to the ER symptoms worsen. Patient declined blood work [] I oversaw on the above date of service of this patient and discussed the care with the WRISTER. I agree with the findings, plan of care, and disposition as documented. Not on steroids long-term, no other red flag signs or symptoms of back pain indicating need for further diagnostic work-up in ER setting Electronically signed, DO Idris Roe Disclaimer: Idris Disclaimer: This electronic medical record was generated, in whole or in part, using a voice recognition dictation system. Departure Departure Impression: Primary Impression: Bilateral thoracic back pain Disposition: HOME / SELF CARE / HOMELESS Condition: STABLE Referrals: FELICITY CHERRY MD (PCP) Patient Instructions: Back Pain, Adult, [id number] Additional Instructions: Continue taking the prednisone as prescribed by your aviation boatswain's mate. Fill the prescription and take as directed as needed for pain. I also recommend Tylenol and ibuprofen as needed for your pain. Follow-up with your primary care doctor in 1 to 2 days, return to the ER if symptoms worsen or fever develops.. Scripts Cyclobenzaprine Hcl (CYCLOBENZAPRINE HCL) 10 Mg Tablet 1 TAB PO TID PRN for MUSCLE PAIN for 10 Days, #30 TAB 0 Refills Prov: MARI MIDDLETON APRN 12/21/20 Problem Qualifiers Primary Impression: Bilateral thoracic back pain Chronicity: acute Qualified Codes: M54.6 - Pain in thoracic spine MARI MIDDLETON APRN December 21, 2020 20:15 ANGELES LÓPEZ DO December 25, 2020 04:27
[2020-12-21 20:29] VITALS: BP 114/57
--- NOTE | 2020-12-22 01:16 | EKG ---
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
== END 2020-12-21 20:29 | disposition home or self-care (01) ==
LOC: ER 16:59
DX: M54.6 Pain in thoracic spine (principal); R07.89 Other chest pain; R06.02 Shortness of breath; M79.10 Myalgia, unspecified site; Z87.891 Personal history of nicotine dependence
CPT/HCPCS: 71046; 93005; 99283

== ENCOUNTER 2021-01-15 15:02 | Emergency (ER) | payer OTHER ==
[~2021-01-15] VITALS: Ht 152.4 cm; Wt 66.8 kg
[~2021-01-15 15:02] MED LIST changes: +CYCL10TA2 PO
[2021-01-15 15:53] LABS: BASO # 0.1 x10^3/uL (0.0-0.2); BASO % 1 % (0-3); EOS % 0 % (0-3); HEMATOCRIT 40.1 % (39.0-53.0); HEMOGLOBIN 12.6 g/dL (13.0-17.5); LYMPH # 0.5 x10^3/uL (1.0-4.8); LYMPH % 7 % (24-48); MEAN CORPUSCULAR HEMOGLOBIN 21 pg (25-35); MEAN CORPUSCULAR HGB CONC 32 g/dL (31-37); MEAN CORPUSCULAR VOLUME 67 fL (79-100); MONO # 0.1 x10^3/uL (0.0-1.1); MONO % 1 % (0-9); NEUT # 6.7 x10^3/uL (1.8-7.7); NEUT % 91 % (31-73); PLATELET COUNT 225 x10^3/uL (140-400); RED BLOOD COUNT 6.03 x10^6/uL (4.30-5.70); RED CELL DISTRIBUTION WIDTH 16.4 % (11.5-14.5); WHITE BLOOD COUNT 7.4 x10^3/uL (4.0-11.0)
[2021-01-15 15:55] LABS: BILIRUBIN,URINE NEGATIVE (NEG); CLARITY,URINE CLEAR; COLOR,URINE YELLOW; NITRITE,URINE NEGATIVE (NEG); PH,URINE 5.5 (<5.0-8.0); PROTEIN,URINE NEGATIVE (NEG-TRACE); UROBILINOGEN,URINE 0.2 mg/dL (0.2 mg/dL)
[2021-01-15 16:05] LABS: BACTERIA,URINE 0 /HPF (0-FEW); RBC,URINE 0 /HPF (0-2); WBC,URINE 0 /HPF (0-4)
--- NOTE | 2021-01-15 16:06 | RAD ---
EXAM: CHEST 1 VIEW History: Chest pain COMPARISON: 12/21/2020 TECHNIQUE: Single portable radiograph of the chest FINDINGS: The cardiac silhouette is unremarkable. Linear perihilar airspace opacities bilateral lung s slightly improved since prior exam. The costophrenic sulci are clear and well demarcated. IMPRESSION: Slightly improved bilateral perihilar airspace opacities likely atelectasis or infiltrates. Electronically signed by: Kai Resendez MD (01/15/2021 4:04 PM) [id number]
--- NOTE | 2021-01-15 16:14 | EKG ---
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
[2021-01-15 16:16] LABS: CREATININE 1.2 mg/dL (0.7-1.3); GFR 83.4
[2021-01-15 16:17] LABS: % BASOS 1 % (0-3); % LYMPHS 9 % (24-48); % MONOS 1 % (0-10); % SEGS 89 % (35-66)
[2021-01-15 16:18] LABS: ANISOCYTOSIS SLIGHT; HYPOCHROMIA MOD; MICROCYTOSIS MARKED; PLT ESTIMATE ADEQUATE (ADEQUATE); POIKILOCYTOSIS SLIGHT
[2021-01-15 16:19] LABS: OVALOCYTES FEW
[2021-01-15 16:20] LABS: ALBUMIN 3.5 g/dL (3.4-5.0); MAGNESIUM 1.9 mg/dL (1.8-2.4); TOTAL BILIRUBIN 0.6 mg/dL (0.2-1.0); TOTAL PROTEIN 7.1 g/dL (6.4-8.2)
[2021-01-15 16:30] LABS: CREATINE KINASE 53 U/L (39-308)
[2021-01-15] MEDS ORDERED: LIDO:MAALOX 1:1 20 ML SINGLE DOSE. SWSW ONE (16:45)
--- NOTE | 2021-01-15 16:46 | ED.ADGEN ---
Past Medical History Past Medical History: Other Additional Past Medical Histor: SARCORDOSIS Past Surgical History: No Surgical History Additional Past Surgical Histo: ORAL SURGERY Smoking Status: Former Smoker Alcohol Use: None Drug Use: None General Adult EDM: Chief Complaint: CHEST PAIN HPI: HPI: Patient is a 35 year old AA male with a previous history of sarcoidosis that presents to the emergency department today with complaints of upper abdominal pain that radiates to his left chest for about the last 45 minutes. Patient reports that the pain increases with palpation, he denies any nausea, vomiting, body aches, palpitations, dizziness, syncope, headache, fever, cough, shortness of breath, diarrhea, or fatigue. Patient states he did break out in a sweat with the onset of the pain. He denies any alleviating factors the pain is worse with palpation and deep breath. He currently rates his pain a 8 out of 10 on the pain scale, he denies any alleviating factors. Review of Systems: Review of Systems: Complete ROS is negative unless otherwise noted in HPI. Current Medications: Current Medications Medications (Trade) Dose Ordered Sig/Brandon Start Time Stop Time Status Last Admin Dose Admin Multi-Ingredient Mouthwash/Gargle (Gi Cocktail) 20 ml 1X ONCE 01/15/21 16:45 01/15/21 16:46 DC 01/15/21 16:42 20 ML Allergies: Allergies: Allergies Coded Allergies Type Severity Reaction Last Updated Verified No Known Drug Allergies 12/09/19 No Physical Exam: PE: See Above Constitutional: Well developed, well nourished, no acute distress, non-toxic appearance. [] HENT: Normocephalic, atraumatic, bilateral external ears normal, nose normal. [] Eyes: PERRLA, EOMI, conjunctiva normal, no discharge. [] Neck: Normal range of motion, no stridor. [] Cardiovascular:Heart rate regular rhythm Lungs & Thorax: Respirations even and unlabored, no retractions, no respiratory distress Abdomen: soft, epigastric TTP, no rebound tenderness, no guarding, no palpable mass Skin: Warm, dry, no erythema, no rash. [] Extremities: No cyanosis, ROM intact, no edema. [] Neurologic: Alert and oriented X 3, normal motor, normal sensory, no focal deficits noted. [] Psychologic: Affect normal, judgement normal, mood normal. [] Current Patient Data: Labs: Laboratory Tests Test 01/15/21 15:15 01/15/21 15:35 01/15/21 16:06 White Blood Count 7.4 x10^3/uL (4.0-11.0) Red Blood Count 6.03 x10^6/uL (4.30-5.70) H Hemoglobin 12.6 g/dL (13.0-17.5) L Hematocrit 40.1 % (39.0-53.0) Mean Corpuscular Volume 67 fL (79-100) L Mean Corpuscular Hemoglobin 21 pg (25-35) L Mean Corpuscular Hemoglobin Concent 32 g/dL (31-37) Red Cell Distribution Width 16.4 % (11.5-14.5) H Platelet Count 225 x10^3/uL (140-400) Neutrophils (%) (Auto) 91 % (31-73) H Lymphocytes (%) (Auto) 7 % (24-48) L Monocytes (%) (Auto) 1 % (0-9) Eosinophils (%) (Auto) 0 % (0-3) Basophils (%) (Auto) 1 % (0-3) Neutrophils # (Auto) 6.7 x10^3/uL (1.8-7.7) Lymphocytes # (Auto) 0.5 x10^3/uL (1.0-4.8) L Monocytes # (Auto) 0.1 x10^3/uL (0.0-1.1) Eosinophils # (Auto) 0.0 x10^3/uL (0.0-0.7) Basophils # (Auto) 0.1 x10^3/uL (0.0-0.2) Segmented Neutrophils % 89 % (35-66) H Lymphocytes % 9 % (24-48) L Monocytes % 1 % (0-10) Basophils % 1 % (0-3) Platelet Estimate Adequate (ADEQUATE) Hypochromasia Mod Poikilocytosis Slight Anisocytosis Slight Microcytosis Marked Ovalocytes Few Sodium Level 141 mmol/L (136-145) Potassium Level 4.0 mmol/L (3.5-5.1) Chloride Level 105 mmol/L (98-107) Carbon Dioxide Level 27 mmol/L (21-32) Anion Gap 9 (6-14) Blood Urea Nitrogen 10 mg/dL (8-26) Creatinine 1.2 mg/dL (0.7-1.3) Estimated GFR (Cockcroft-Gault) 83.4 BUN/Creatinine Ratio 8 (6-20) Glucose Level 169 mg/dL (70-99) H Calcium Level 9.0 mg/dL (8.5-10.1) Magnesium Level 1.9 mg/dL (1.8-2.4) Total Bilirubin 0.6 mg/dL (0.2-1.0) Aspartate Amino Transferase (AST) 12 U/L (15-37) L Alanine Aminotransferase (ALT) 22 U/L (16-63) Alkaline Phosphatase 74 U/L (46-116) Creatine Kinase 53 U/L (39-308) Creatine Kinase MB (Mass) < 0.5 ng/mL (0.0-3.6) Creatine Kinase MB Relative Index % (0-4) Troponin I Quantitative < 0.017 ng/mL (0.000-0.055) Total Protein 7.1 g/dL (6.4-8.2) Albumin 3.5 g/dL (3.4-5.0) Albumin/Globulin Ratio 1.0 (1.0-1.7) Lipase 245 U/L (73-393) Urine Collection Type Unknown Urine Color Yellow Urine Clarity Clear Urine pH 5.5 (<5.0-8.0) Urine Specific [place] <=1.005 (1.000-1.030) Urine Protein Negative mg/dL (NEG-TRACE) Urine Glucose (UA) Negative mg/dL (NEG) Urine Ketones (Stick) Negative mg/dL (NEG) Urine Blood Negative (NEG) Urine Nitrite Negative (NEG) Urine Bilirubin Negative (NEG) Urine Urobilinogen Dipstick 0.2 mg/dL (0.2 mg/dL) Urine Leukocyte Esterase Negative (NEG) Urine RBC 0 /HPF (0-2) Urine WBC 0 /HPF (0-4) Urine Bacteria 0 /HPF (0-FEW) D-Dimer (Sarita) < 0.27 ug/mlFEU Laboratory Tests 01/15/21 15:15 Laboratory Tests 01/15/21 15:15 Vital Signs: Vital Signs Date Time Temp Pulse Resp B/P (MAP) Pulse Ox O2 Delivery O2 Flow Rate FiO2 01/15/21 16:37 100 115/56 (75) 93 Room Air 01/15/21 15:02 98.1 19 98.1 EKG: EKG: [] Heart Score: C/O Chest Pain: Yes HEART Score for Chest Pain: HEART Score for Chest Pain Response (Comments) Value History Slighlty/Non-Suspicious 0 ECG Normal 0 Age < 45 0 Risk Factors 1 or 2 Risk Factors 1 Troponin < Normal Limit 0 Total 1 Risk Factors: Risk Factors: family history of CAD Risk Scores: Score 0 - 3: 2.5% MACE over next 6 weeks - Discharge Home Score 4 - 6: 20.3% MACE over next 6 weeks - Admit for Clinical Observation Score 7 - 10: 72.7% MACE over next 6 weeks - Early Invasive Strategies Radiology/Procedures: Radiology/Procedures: PROCEDURE: CHEST AP ONLY EXAM: CHEST 1 VIEW History: Chest pain COMPARISON: 12/21/2020 TECHNIQUE: Single portable radiograph of the chest FINDINGS: The cardiac silhouette is unremarkable. Linear perihilar airspace opacities bilateral lungs slightly improved since prior exam. The costophrenic sulci are clear and well demarcated. IMPRESSION: Slightly improved bilateral perihilar airspace opacities likely atelectasis or infiltrates. Electronically signed by: Kai Resendez MD (01/15/2021 4:04 PM) [id number] [] Course & Med Decision Making: Course & Med Decision Making Pertinent Labs and Imaging studies reviewed. (See chart for details) 35-year-old -[place] male presented to the emergency room with complaints of upper abdominal pain that radiated to his chest. EKG did not reveal any acute findings. Chest x-ray was improved from previous x-ray. CBC revealed no acute findings; D-dimer is not elevated; CMP revealed a glucose of 169 otherwise unremarkable; UA is unremarkable. Patient's vital signs are stable throughout his emergency department stay. He reported feeling better after GI cocktail was administered. [] Dragon Disclaimer: Dragon Disclaimer: This electronic medical record was generated, in whole or in part, using a voice recognition dictation system. Departure Departure Impression: Primary Impression: Chest pain Disposition: HOME / SELF CARE / HOMELESS Condition: STABLE Referrals: FELICITY CHERRY MD (PCP) Patient Instructions: Chest Pain (Nonspecific), [id number] Problem Qualifiers Primary Impression: Chest pain Chest pain type: unspecified Qualified Codes: R07.9 - Chest pain, unspecified MARI [employer] Jan 15, 2021 16:46
[2021-01-15 17:07] VITALS: BP 112/58
== END 2021-01-15 17:25 | disposition home or self-care (01) ==
LOC: ER 15:02
DX: R07.89 Other chest pain (principal); R10.13 Epigastric pain; Z87.891 Personal history of nicotine dependence
CPT/HCPCS: 36415; 71045; 80053; 81001; 82553; 83690; 83735; 84484; 85007; 85025; 85379; 93005; 99285-25